=== PATIENT | male | born 1995 | race Hispanic/Latino ===

== ENCOUNTER 2016-06-07 14:35 | Emergency (ER) | payer OTHER ==
[~2016-06-07] VITALS: Ht 177.8 cm; Wt 79.0 kg
[~2016-06-07 14:35] MED LIST: BUTALBITAL/ACETAMIN1 PO; PREDNISONE20 MG PO
[2016-06-07 15:31] LABS: INFLUENZA A NONE DETECTED (NONE DETECT); INFLUENZA B NONE DETECTED (NONE DETECT)
[2016-06-07] MEDS ORDERED: AMOXICILLIN/PO500 MG PO (15:58)
[2016-06-07 16:02] VITALS: BP 147/81
== END 2016-06-07 16:10 | disposition home or self-care (01) | DRG 153 ==
LOC: ED 14:35
PROVIDERS: Emergency Medicine
DX: J02.9 Acute pharyngitis, unspecified (principal); H66.91 Otitis media, unspecified, right ear; M79.1 Myalgia

== ENCOUNTER 2019-10-03 11:08 | Emergency (ER) | payer OTHER ==
[~2019-10-03] VITALS: Ht 177.8 cm; Wt 100.0 kg
[~2019-10-03 11:08] MED LIST changes: +AMOXICILLIN/PO500 MG PO
[2019-10-03] MEDS ORDERED: CEPHALEXIN500 M1 PO (11:39)
[2019-10-03 12:36] VITALS: BP 127/65
== END 2019-10-03 12:37 | disposition home or self-care (01) | DRG 914 ==
LOC: ED 11:08
PROC: 0HQKXZZ Repair Right Lower Leg Skin, External Approach (ICD-10-PCS; principal; 2019-10-03)
DX: S81.021A Laceration with foreign body, right knee, initial encounter (principal); W29.3XXA Contact with powered garden and outdoor hand tools and machinery, initial encounter; Y93.89 Activity, other specified; Y92.009 Unspecified place in unspecified non-institutional (private) residence as the place of occurrence of the external cause
CPT/HCPCS: L1830

== ENCOUNTER 2020-03-06 22:20 | Emergency (ER) | payer OTHER ==
[~2020-03-06] VITALS: Ht 177.8 cm; Wt 90.0 kg
[~2020-03-06 22:20] MED LIST changes: +CEPHALEXIN500 M1 PO
[2020-03-06] MEDS ORDERED: MEDICAL MARIJUANA (22:37)
[2020-03-06 22:51] LABS: HEMATOCRIT 38.7 % (39.0-50.0); IMMATURE GRANULOCYTES 0.2 % (0.0-5.0); MEAN CELL VOLUME 93.7 fL CALC (80.0-100.0); MEAN CORPUSCULAR HGB 31.7 pG CALC (26.0-32.0); MEAN CORPUSCULAR HGB CONC 33.9 g/dL CAL (32.0-36.0); NEUT# 6.68 thou/uL (1.82-7.42); RED BLOOD COUNT 4.13 mill/uL (4.70-6.10); RED CELL DISTRI WIDTH 11.9 % (11.5-15.5)
[2020-03-06 22:57] LABS: HEMOGLOBIN 13.1 g/dl (14.0-18.0)
[2020-03-06 23:09] LABS: ALBUMIN 4.1 g/dL (3.2-5.0); ANION GAP 11 (6-22 (CALC)); BUN 13 mg/dL (9-20); BUN/CREATININE RATIO 15 (12-20 (CALC)); CARBON DIOXIDE 25 mmol/l (22-30); CHLORIDE 106 mmol/l (95-108); CREATININE 0.8 mg/dL (0.7-1.3); GFR > 60 ML/MIN (>=60 (CALC)); GFR FOR AFR.AMER. > 60 ML/MIN (>=60 (CALC)); POTASSIUM 3.5 mmol/l (3.5-5.1); SGOT/AST 16 u/l (17-59); SODIUM 138 mmol/l (137-146); TOTAL PROTEIN 6.8 g/dL (6.3-8.2)
[2020-03-06 23:21] LABS: MYOGLOBIN 16 ng/mL (0 - 121)
[2020-03-06 23:22] LABS: ALKALINE PHOSPHATASE 46 u/l (38-126); BILIRUBIN, TOTAL 0.3 mg/dL (0.0-1.4)
[2020-03-07 00:35] LABS: URINE BILIRUBIN - DIPSTICK NEGATIVE (NEGATIVE); URINE BLOOD DIPSTICK NEGATIVE (NEGATIVE); URINE COLOR YELLOW; URINE GLUCOSE - DIPSTICK NEGATIVE (NEGATIVE); URINE KETONE NEGATIVE (NEGATIVE); URINE LEUK ESTERASE NEGATIVE (NEGATIVE); URINE NITRITE - DIPSTICK NEGATIVE (Negative); URINE PROTEIN - DIPSTICK NEGATIVE (NEG-TRACE); URINE SPECIFIC GRAVITY 1.025; URINE UROBILINOGEN - DIPSTICK 0.2 E.U./dL (0.2)
[2020-03-07 01:00] VITALS: BP 116/46
== END 2020-03-07 01:07 | disposition home or self-care (01) | DRG 313 ==
LOC: ED 22:20
PROVIDERS: Emergency Medicine
DX: R07.89 Other chest pain (principal)